=== PATIENT | male | born 2000 | race Two or more races ===

== ENCOUNTER → 2024-03-03 | Emergency (ER) | payer OTHER ==
[~2024-03-03] VITALS: Ht 167.6 cm; Wt 63.5 kg
[~2024-03-03] MED LIST: 0.9 % SODIUM CHLORIDE 1,000 ML IV SCH; FAMOTIDINE/PF 20 MG in 0.9 % SODIUM CHLORIDE 8 ML IV PUSH STA; KETOROLAC TROMETHAMINE 30 MG VIAL IV ONE; ONDANSETRON HCL 2 MG/ML VIAL IV ONE
== END | disposition left against medical advice (07) ==
LOC: ER 07:41
DX: K29.70 Gastritis, unspecified, without bleeding (principal)